=== PATIENT | female | born 1950 | race Caucasian/White ===

== ENCOUNTER → 2016-11-19 | Outpatient (CLI) | payer BC ==
[~2016-11-19] MED LIST: AMARYL1 MG PO; CADUET 5 MG-101 EACH PO; CLARINEX5 MG PO; JANUVIA PO; METFORMIN HCL850 MG PO; NEURONTIN100 MG PO; NEXIUM PO; TEKTURNA HCT 301 TA1 PO
--- NOTE | ~2016-11-19 | CR63 ---
[facility] A Service of [facility] / [facility] RADIOLOGY TEXT RESULTS PATIENT: MAURICIO JUAREZ LOCATION: [facility] : 54 UNIT #: [id number] AGE: [address]: Carly Neil MD SEX: F ORDER DR: [id number] [facility] [address] [place], [place] [address] [id number] O MR#: [id number] Acc #: [id number] NAME: MAURICIO JUAREZ : 1950 SEX: F STUDY DATE/TIME: 11/19/2016 16:02 UNIT: [facility] ROOM: STUDY DESCRIPTION: CR Chest 2 View Attending Physician: Carly Neil M.D. Referring Physician: Carly Neil M.D. Ordering Physician: Carly Neil M.D. Primary Care Physician: Carly Neil M.D. MEDICAL IMAGING REPORT This report is preliminary unless electronic signature is present EXAMINATION PA and lateral chest. DATE 11/19/2016 HISTORY 66-year-old female with cough and congestion for 2 weeks. COMPARISON PA lateral chest radiograph, 12/04/2013. FINDINGS Heart size is upper limits normal but stable. No acute airspace disease is identified. No pleural effusion or pneumothorax is seen. Degenerative endplate spurring is present within the thoracic spine. Benign calcified granuloma in the left suprahilar region. No thoracic dextroscoliosis. IMPRESSION 1. No acute chest findings. No significant change from 12/04/2013. 2. Thoracic dextroscoliosis. Dictated by... Melani Barajas M.D. THIS IS AN ELECTRONICALLY VERIFIED REPORT Melani Barajas M.D. at 11/22/2016 8:33 AM KATHRINE/[place] TD: 11/19/2016 21:09 JOB #: [id number] [facility] A Service [facility] RADIOLOGY TEXT RESULTS PATIENT: MAURICIO JUAREZ LOCATION: [facility] #: [id number] : 54 UNIT #: [id number] AGE: [address]: Carly Neil MD SEX: F ORDER DR: MEDICAL IMAGING REPORT Page 1 of 1 COPY
== END | disposition home or self-care (01) ==
LOC: CRAD 15:48
DX: R05 Cough (principal); R09.89 Other specified symptoms and signs involving the circulatory and respiratory systems; M41.9 Scoliosis, unspecified
CPT/HCPCS: 71020

== ENCOUNTER 2016-11-23 09:57 | Emergency (ER) | payer BC ==
[2016-11-23 10:40] LABS: BASOPHIL% 0.4 % (0-2.5); DIFF IND YES; EOSINOPHIL% 0.5 % (0.0-7.0); HEMATOCRIT 30.8 % (35.0-45.0); HEMOGLOBIN 9.7 gm/dL (12.0-16.0); LYMPHOCYTE# 0.5 X10e3 (1.0-3.5); LYMPHOCYTE% 23.2 % (17.0-45.0); MEAN CELL VOLUME 83.8 FL (83-96); MEAN CORPUSCULAR HEMOGLOBIN 26.5 PG (28-34); MEAN CORPUSCULAR HGB CONC 31.6 g/dL (30-36); MEAN PLATELET VOLUME 7.8 FL (6.5-11.5); MONOCYTE# 0.1 X10e3 (0-1.0); MONOCYTE% 3.6 % (3.0-12.0); NEUTROPHIL# 1.7 X10e3 (1.5-7.1); NEUTROPHIL% 72.3 % (40-75); PLATELET COUNT 184 X10e3 (140-420); RED BLOOD COUNT 3.68 X10e (3.90-5.30); RED CELL DISTRIBUTION WIDTH 15.7 % (11.0-15.5); WHITE BLOOD COUNT 2.3 X10e3 (4.0-10.5)
[2016-11-23 11:03] LABS: ANISOCYTOSIS SL; OVALOCYTES PRESENT; PLATELET ESTIMATE NORMAL (NORMAL); RBC NORMAL YES
[2016-11-23 11:10] LABS: ALBUMIN SERUM 2.5 g/dL (3.5-5.0); BILIRUBIN, DIRECT 0.1 mg/dL (0.0-0.2); BILIRUBIN,INDIRECT 0.3 mg/dL (0.0-0.9); BILIRUBIN,TOTAL 0.4 mg/dL (0.2-2.0); BUN/CREATININE RATIO 12.17; CALCIUM SERUM 7.8 mg/dL (8.4-10.2); CREATININE SERUM 2.3 mg/dL (0.6-1.4); GLOM FILT RATE Estimated 21.7 mL/min (>60); POTASSIUM 4.2 mmol/L (3.5-5.1); PROTEIN TOTAL SERUM 6.2 g/dL (6.0-8.3)
[2016-11-23 11:17] LABS: URINE SOURCE CLEAN CATCH
[2016-11-23 11:25] LABS: URINE APPEARANCE CLOUDY; URINE BILIRUBIN NEG (NEG); URINE BLOOD NEG (NEG); URINE COLOR DK YELLOW; URINE GLUCOSE NEG (NEG); URINE KETONE NEG (NEG); URINE LEUKOCYTE ESTERASE 3+ (NEG); URINE NITRATE NEG (NEG); URINE PROTEIN 1+ (NEG); URINE SPECIFIC GRAVITY 1.015 (1.003-1.035); URINE UROBILINOGEN 0.2 MG/DL (NEG)
[2016-11-23 11:28] LABS: CULTURE INDICATED? YES; URINE BACTERIA AUWI 4+ (NEGATIVE); URINE SQUAMOUS EPITHELIAL CELL MANY /[HPF]; UWBCS1 AUWI 50-100 (0-5)
[2016-11-23 11:47] LABS: URBCS1 AUWI 0-2 /[HPF] (0-2); URINE MUCUS PRESENT; URINE TRANSITIONAL EPI CELLS FEW /[HPF]
== END 2016-11-23 13:15 | disposition home or self-care (01) ==
LOC: CED 09:57
PROVIDERS: Emergency Medicine
DX: E11.649 Type 2 diabetes mellitus with hypoglycemia without coma (principal); I10 Essential (primary) hypertension; K57.92 Diverticulitis of intestine, part unspecified, without perforation or abscess without bleeding; Z79.84 Long term (current) use of oral hypoglycemic drugs; Z87.891 Personal history of nicotine dependence; Z79.899 Other long term (current) drug therapy; Z88.2 Allergy status to sulfonamides; Z90.49 Acquired absence of other specified parts of digestive tract; Z90.710 Acquired absence of both cervix and uterus
CPT/HCPCS: 36415; 80048; 80076; 81003; 82947; 85025; 87086; 99283

== ENCOUNTER → 2017-03-14 | Outpatient (CLI) | payer BC ==
--- NOTE | ~2017-03-14 | CT4 ---
[facility] A Service of [facility] / [facility] RADIOLOGY TEXT RESULTS PATIENT: MAURICIO JUAREZ [facility] : 54 UNIT #: [id number] AGE: [address]: Carly Neil MD SEX: F ORDER DR: [id number] [facility] [address] [place], [place] [address] [id number] O MR#: [id number] [facility] #: [id number] NAME: MAURICIO JUAREZ : 1950 SEX: F STUDY DATE/TIME: 03/14/2017 13:57 UN[facility] ROOM: STUDY DESCRIPTION: CT Abd and Pelv Wo Cont Attending Physician: Carly Neil M.D. Referring Physician: Carly Neil M.D. Ordering Physician: Carly Neil M.D. Primary Care Physician: Carly Neil M.D. MEDICAL IMAGING REPORT This report is preliminary unless electronic signature is present EXAM CT of the abdomen and pelvis without contrast INDICATION Abdominal pain, weight loss and anemia. Patient reports the pain has been present since November of 2016. It is located right upper quadrant and hypogastrium. TECHNIQUE Axial CT images were obtained from the dome of the diaphragm through symphysis pubis. No oral or intravenous contrast material was administered. This CT exam was performed with one or more of the following radiation dose reduction techniques: Automatic exposure control, adjustment of mA and/or kV according to patient size, and iterative reconstruction. FINDINGS Background service changes are seen. There is some scarring identified within the left lower lobe which was probably also present in June of 2011. Patient has diffuse hepatic steatosis. Spleen is enlarged measuring up to 14.7 cm in craniocaudal dimensions. Liver is also enlarged measuring up to 16.8 cm in craniocaudal dimensions. These are new findings when compared to June of 2011. Adrenal glands appear unremarkable. Pancreas is mildly atrophic. Gallbladder is surgically absent. There is no intra or extrahepatic biliary dilatation. There is a small hiatal hernia. Proximal small bowel is within normal limits. Kidneys have a somewhat lobulated contour but are stable in appearance when compared to 2011. I do not see any adenopathy within the upper abdomen. Uterus is surgically absent. Urinary bladder appears unremarkable. There is colonic diverticulosis although I do not see any convincing evidence of STS. [facility] A Service of [facility] RADIOLOGY TEXT RESULTS PATIENT: MAURICIO JUAREZ LOCATION: [facility] : 54 UNIT #: [id number] AGE: [address]: Carly Neil MD SEX: F ORDER DR: diverticulitis. There is a small fat-containing umbilical hernia. No free fluid or adenopathy is seen within the pelvis. Review of bony windows does not demonstrate any aggressive osseous abnormalities. There is some mild lumbar scoliosis with convexity to the left. IMPRESSION 1. Since prior exam from June 2011, this patient has developed diffuse hepatic steatosis and hepatosplenomegaly. No obvious focal hepatic lesions are seen on this examination. 2. Small hiatal hernia. 3. Gallbladder is surgically absent. 4. Colonic diverticulosis without any evidence of diverticulitis. Dictated by... Melissa Lantigua M.D. THIS IS AN ELECTRONICALLY VERIFIED REPORT Melissa Lantigua M.D. at 03/16/2017 8:33 AM AFF/bd TD: 03/15/2017 10:05 JOB #: [id number] MEDICAL IMAGING REPORT Page 1 of 1 COPY
== END | disposition home or self-care (01) ==
LOC: CCAT 13:15
DX: R10.9 Unspecified abdominal pain (principal); D50.8 Other iron deficiency anemias; R63.4 Abnormal weight loss; K44.9 Diaphragmatic hernia without obstruction or gangrene; K57.30 Diverticulosis of large intestine without perforation or abscess without bleeding; K76.0 Fatty (change of) liver, not elsewhere classified; R16.2 Hepatomegaly with splenomegaly, not elsewhere classified; Z90.49 Acquired absence of other specified parts of digestive tract
CPT/HCPCS: 74176